=== PATIENT | male | born 1985 | race American Indian/Alaskan Native ===

== ENCOUNTER 2021-10-23 05:27 | Emergency (ER) | payer SELFPAY ==
[2021-10-23] MEDS ORDERED: ONDANSETRON 4 MG/2 ML INJ IV ONE (06:22)
[2021-10-23] MEDS ORDERED: MIDAZOLAM 5 MG/5 ML INJ MDV IV ONE (06:22)
[2021-10-23] MEDS ORDERED: SODIUM CHLORIDE 0.9% 1000 ML 1,000 ML IV ONE (06:22)
[2021-10-23] MEDS ORDERED: fentaNYL 100 MCG/2 ML INJ IV ONE (06:22)
[2021-10-23] MEDS ORDERED: ETOMIDATE 20 MG/10 ML INJ IV ONE ×2 (06:22→07:08)
--- NOTE | 2021-10-23 06:33 | XRay Report ---
LEFT SHOULDER 3 VIEW(S) INDICATION / CLINICAL INFORMATION: left shoulder pain. COMPARISON: None available. FINDINGS: Anterior dislocation of the left glenohumeral joint. Visualized left chest unremarkable. IMPRESSION: 1. Anterior dislocation of the left glenohumeral joint. Signer Name: Silas Gibson II, MD Signed: 10/23/2021 6:28 AM Workstation Name: [id number]
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
[2021-10-23] MEDS ORDERED: HYDROGEN PEROXIDE 118 ML SOLUTION TP ONE (06:54)
--- NOTE | 2021-10-23 07:36 | XRay Report ---
LEFT SHOULDER 3 VIEW(S) INDICATION / CLINICAL INFORMATION: post reduction. COMPARISON: Left shoulder x-ray 10/23/2021 FINDINGS: Restored anatomic relationship of the left glenohumeral joint. IMPRESSION: 1. Interval reduction of left shoulder dislocation. Signer Name: Silas Gibson II, MD Signed: 10/23/2021 7:32 AM Workstation Name: [id number]
[2021-10-23] MEDS ORDERED: MIDAZOLAM 5 MG/5 ML INJ MDV IV NR (08:00)
[2021-10-23 10:35] VITALS: BP 139/82
== END 2021-10-23 10:34 | disposition home or self-care (01) ==
LOC: ED 05:27
DX: S43.085A Other dislocation of left shoulder joint, initial encounter (principal); S01.112A Laceration without foreign body of left eyelid and periocular area, initial encounter; F12.90 Cannabis use, unspecified, uncomplicated; Z79.899 Other long term (current) drug therapy; W18.39XA Other fall on same level, initial encounter; Y93.89 Activity, other specified; Y92.89 Other specified places as the place of occurrence of the external cause; Y99.8 Other external cause status
CPT/HCPCS: 12011; 23650; 73020; 73030; 96361; 96374; 99285; J2250; J2405; J3010; J3490; J7030; 96375